=== PATIENT | male | born 1995 ===

== ENCOUNTER 2018-12-28 08:25 | Day surgery (SDC) | payer OTHER ==
[2018-12-28] MEDS ORDERED: Lactated Ringer's 500 ML IV ONE (09:14)
[2018-12-28 09:20] VITALS: TEMP 97
[2018-12-28] MEDS ORDERED: Propofol 10 mg/ml Inj (20 ML) ONE (10:29)
[2018-12-28 11:05] VITALS: O2SAT 97
[2018-12-28 11:23] VITALS: BP 112/49; PULSE 68; RESP 16
== END 2018-12-28 12:00 | disposition home or self-care (01) ==
LOC: H.ENDO 08:25
PROVIDERS: ATTEND Internal Medicine Gastroenterology
DX: K64.8 Other hemorrhoids (principal); R10.31 Right lower quadrant pain; K52.9 Noninfective gastroenteritis and colitis, unspecified; K29.50 Unspecified chronic gastritis without bleeding
CPT/HCPCS: 43239; 45380; 88305; J2001; J2704; J7120